=== PATIENT | female | born 1980 | race Caucasian/White ===

== ENCOUNTER 2017-04-22 20:24 | Emergency (ER) | payer BC ==
[2017-04-22 20:32] VITALS: BMI 24.3
--- NOTE | 2017-04-22 21:20 | DR.GENAD ---
HPI - PCP Primary Care Physician: Scott HUNT - HPI Comment HPI Comment: HISTORY BELOW. - Complaint/Symptoms Chief Complaint Doctors Comments: CHEST PAIN, SEVERE HEADACHE WITH NUMBNESS, N/ V AND PHOTOPHOBIA. HEADACHE NOT LIKE MIGRAINE. SEVERE. WORSE HEADACHE EVER. NOFEVER OR TRAUMA. Chief Complaint:: PT STATES" I'VE HAD SOME PROBLEMS WITH MY BP TODAY AND I FEEL LIKE SOMETHING IS HEAVY ON MY CHEST" - Nurses notes reviewed Nurses Notes Review: Yes - Source History Provided: Patient - Mode of Arrival Mode of Arrival: Ambulatory - Timing Onset of Chief Complaint: 04/22/17 Came on: Suddenly - Duration Duration: Constant Duration: Hours - Severity Severity: Moderate PMH - PMH Past Medical History: Yes Past Medical History: Anxiety, Headaches Past Surgical History: Yes Surgical History: CABG/Valve Surgery, Cholecystectomy, Hysterectomy, Other - Family History History of Family Medical Conditions: Yes Family Medical History: Diabetes Mellitus, [place], Hypertension - Social History Type of Tobacco Use: None Does any household member use tobacco: No Alcohol Use: None Do you use any recreational Drugs:: No Lives With: Family - infectious screening In the last 2 months have you had wt loss of >10#?: NO Have you had fever, night sweats or hemotysis?: No Have you traveled outside the country in the last 6 months?: No Isolation: Standard ROS - Review of Systems Constitutional: Weakness, Fatigue. negative: Chills, Fever Eyes: Blurred Vision, Photophobia ENTM: No Symptoms Reported Respiratoy: Short of Breath Cardiovascular: Chest Pain Gastrointestinal/Abdominal: Nausea, Vomiting Genitourinary: negative: Dysuria, Frequency, Hematuria Neurological: Headache, Weakness, Dizziness Musculoskeletal: Muscle Pain Integumentary: No Symptoms Reported Hematologic/Lymphatic: No Symptoms Reported Endocrine: No Symptoms Reported All Other Systems: Reviewed and Negative PE - Vital Signs Vitals: Temperature 97.1 F Pulse Rate [Left Brachial] 96 Pulse Rate 107 Respiratory Rate 19 Blood Pressure [Left Arm] 114/74 Blood Pressure 146/105 O2 Sat by Pulse Oximetry 96 - General Limitations: No Limitations General Appearance: Alert - Head Head Exam: Normal Inspection - Eyes Eye exam: Normal Appearance - ENT ENT Exam: Normal External Ear Exam External Ear Exam: Normal External Inspection TM/Canal Exam: Bilateral Normal Nose Exam: Normal Nose Exam Mouth Exam: Normal Inspection Throat Exam: Normal Inspection - Neck Neck Exam: Normal Inspection - Chest Chest Inspection: Symmetric Chest Wall Rise - Respiratory Respiratory Exam: Normal Lung Sounds Bilat Respiratory Exam: Bilateral Clear to Auscultation - Cardiovascular Cardiovascular Exam: Regular Rate, Normal Rhythm, Normal Heart Sounds - Abdominal Exam Abdominal Exam: Normal Bowel Sounds, Soft. negative: Tenderness - Extremities Extremities Exam: Normal Inspection - Back Back Exam: Normal Inspection - Neurologic Neurological Exam: Alert, Oriented X3, CN II-XII Intact, Normal Gait, Reflexes Normal. negative: Motor Sensory Deficit - Psychiatric Psychiatric Exam: Anxious - Skin Skin Exam: Normal Color MDM - Differential Diagnosis Differential Diagnosis: MIGRAINE, CHEST PAIN, SEVERE HEADACHE, PARESTHESIA Course - Treatment Treatment: SEE ORDERS. MED FOR PAIN, IMPROVED. - Reevaluation 1st: Improved - Education/Counseling Education/Counseling: Patient, Family, Education Educated On: Treatment, Diagnosis, Needs for Follow Up ROR - Labs Reviewed Laboratory Results Reviewed?: Yes Result Diagrams: 04/22/17 21:19 04/22/17 21:19 Laboratory: WBC 7.1 X10^3/uL (3.6-10.0) 04/22/17 21:19 RBC 4.43 X10^6/uL (3.5-5.4) 04/22/17 21:19 Hgb 14.0 g/dL (12.0-16.0) 04/22/17 21:19 Hct 40.6 % (36.0-47.0) 04/22/17 21:19 MCV 91.7 fL (80.0-100.0) 04/22/17 21:19 MCH 31.5 pg (27.0-34.0) 04/22/17 21:19 MCHC 34.4 g/dL (33.0-35.0) 04/22/17 21:19 RDW 12.8 % (11.6-16.5) 04/22/17 21:19 Plt Count 247 X10^3/uL (150.0-450.0) 04/22/17 21:19 MPV 10.0 fL (7.4-11.0) 04/22/17 21:19 Neut % 56.8 % (42.0-75.0) 04/22/17 21:19 Lymph % 30.9 % (21.0-51.0) 04/22/17 21:19 [place] % 9.7 % (0.0-13.0) 04/22/17 21:19 Eos % 1.2 % (0.9-2.9) 04/22/17 21:19 Baso % 1.4 % (0.2-1.0) H 04/22/17 21:19 Neut # 4.0 x10^3/uL (2.2-4.8) 04/22/17 21:19 Lymph # 2.2 X10^3/uL (1.3-2.9) 04/22/17 21:19 [place] # 0.7 x10^3/uL (0.3-0.8) 04/22/17 21:19 Eos # 0.1 x10^3/uL (0.0-0.2) 04/22/17 21:19 Baso # 0.1 X10^3/uL (0.0-0.1) 04/22/17 21:19 Absolute Nucleated RBC 0.0 /100WBC 04/22/17 21:19 INR Target Range - 04/22/17 21:19 INR 1.01 (0.8-1.3) 04/22/17 21:19 PTT 28.1 SECONDS (22.9-36.5) 04/22/17 21:19 PTT Comment - 04/22/17 21:19 Sodium 139 mmol/L (136-145) 04/22/17 21:19 Corrected Sodium TNP 04/22/17 21:19 Potassium 3.5 mmol/L (3.5-5.1) 04/22/17 21:19 Chloride 104 mmol/L (98-107) 04/22/17 21:19 Carbon Dioxide 27.0 mmol/L (21-32) 04/22/17 21:19 BUN 14 mg/dL (7-18) 04/22/17 21:19 Creatinine 1.03 mg/dL (0.55-1.02) H 04/22/17 21:19 Est GFR (MDRD) Af Amer > 60 (>60) 04/22/17 21:19 Est GFR (MDRD) Non-Af > 60 (>60) 04/22/17 21:19 Glucose 97 mg/dL (65-99) 04/22/17 21:19 Calcium 9.2 mg/dL (8.5-10.1) 04/22/17 21:19 Corrected Calcium TNP 04/22/17 21:19 Magnesium 1.9 mg/dL (1.7-2.9) 04/22/17 21:19 Total Bilirubin 0.80 mg/dL (0.2-1.0) 04/22/17 21:19 AST 20 Units/L (15-37) 04/22/17 21:19 ALT 20 Units/L (12-78) 04/22/17 21:19 Alkaline Phosphatase 79 Units/L (46-116) 04/22/17 21:19 Creatine Kinase 91 Units/L (26-192) 04/22/17 21:19 CK-MB (CK-2) < 1.0 ng/mL (0-4.0) 04/22/17 21:19 CK/CKMB % Calc 1.1 % (<4) 04/22/17 21:19 Troponin I < 0.02 ng/mL (0-1.5) 04/22/17 21:19 Total Protein 7.8 g/dL (6.4-8.2) 04/22/17 21:19 Albumin 4.1 g/dL (3.4-5.0) 04/22/17 21:19 Globulin 3.7 g/dL (2.5-4.5) 04/22/17 21:19 Albumin/Globulin Ratio 1.1 Ratio (1.1-2.1) 04/22/17 21:19 - XRAY XRAY Interpreted by: Radiologist XRAY Findings: report discusswith patient. - Diagnosis Discharge Problem: Migraine Qualifiers: Migraine type: with aura Status migrainosus presence: without status migrainosus Intractability: intractable Qualified Code(s): G43.119 - Migraine with aura, intractable, without status migrainosus Chest pain Qualifiers: Chest pain type: intercostal pain Qualified Code(s): R07.82 - Intercostal pain - Discharge Plan Disposition: 01 HOME, SELF-CARE Condition: Stable - Follow ups/Referrals Follow ups/Referrals: NFD,None [Primary Care Provider] - 2 days - Instructions Instructions: Migraine Headache, [id number], Chest Pain Observation Additional Instructions: RETURN TO ED IF WORSE. CONTINUE WITH HOME MEDS
[2017-04-22 21:29] LABS: BASOPHILS # (AUTO) 0.1 X10^3/uL (0.0-0.1); BASOPHILS % (AUTO) 1.4 % (0.2-1.0); EOSINOPHILS # (AUTO) 0.1 x10^3/uL (0.0-0.2); EOSINOPHILS % (AUTO) 1.2 % (0.9-2.9); HEMATOCRIT 40.6 % (36.0-47.0); LYMPHOCYTES # (AUTO) 2.2 X10^3/uL (1.3-2.9); LYMPHOCYTES % (AUTO) 30.9 % (21.0-51.0); MEAN CORPUSCULAR HEMOGLOBIN 31.5 pg (27.0-34.0); MEAN CORPUSCULAR HGB CONC 34.4 g/dL (33.0-35.0); MEAN CORPUSCULAR VOLUME 91.7 fL (80.0-100.0); MONOCYTES # (AUTO) 0.7 x10^3/uL (0.3-0.8); MONOCYTES % (AUTO) 9.7 % (0.0-13.0); NEUTROPHILS % (AUTO) 56.8 % (42.0-75.0); PLATELET COUNT 247 X10^3/uL (150.0-450.0); RED BLOOD COUNT 4.43 X10^6/uL (3.5-5.4); RED CELL DISTRIBUTION WIDTH 12.8 % (11.6-16.5); WHITE BLOOD COUNT 7.1 X10^3/uL (3.6-10.0)
[2017-04-22] MEDS ORDERED: DILAUDID INJ IM ONE (21:51)
[2017-04-22] MEDS ORDERED: ATIVAN INJ 2 MG VIAL IM ONE (21:52)
[2017-04-22] MEDS ORDERED: ZOFRAN INJ 4 MG VIAL IM ONE (21:55)
[2017-04-22] MEDS ORDERED: ATIVAN INJ 2 MG VIAL ONE (21:59)
[2017-04-22] MEDS ORDERED: ZOFRAN INJ 4 MG VIAL ONE (21:59)
[2017-04-22] MEDS ORDERED: DILAUDID INJ ONE (21:59)
[2017-04-22 22:01] LABS: BLOOD UREA NITROGEN 14 mg/dL (7-18); CALCIUM 9.2 mg/dL (8.5-10.1); CHLORIDE 104 mmol/L (98-107); CREATININE 1.03 mg/dL (0.55-1.02); SODIUM 139 mmol/L (136-145); TROPONIN I < 0.02 ng/mL (0-1.5); eGFR BLACK RACES > 60 (>60); eGFR NON BLACK RACES > 60 (>60)
--- NOTE | 2017-04-22 22:04 | CT ---
HISTORY: Hypertension Study: CT brain without contrast Comparison: None Technique: Multiple axial images of the brain were obtained from the skull base to the vertex without administra tion of IV contrast. Dose reduction techniques including Automated Exposure Control (AEC) and adjust ment of mA and kV were utilized. Findings: The brain parenchyma is within normal limits for patient's age. No evidence of acute hemorrhage, mid line shift, mass effect or abnormal extra-axial fluid collection. The ventricular system is symmetri c and nondilated. The soft tissues and osseous structures are unremarkable. The visualized paranasal sinuses are clear. IMPRESSION: 1.No acute intracranial abnormality. Reported By:
[2017-04-22 22:06] LABS: ALANINE AMINOTRANSFERASE 20 Units/L (12-78); ALBUMIN 4.1 g/dL (3.4-5.0); ALKALINE PHOSPHATASE 79 Units/L (46-116); ASPARTATE AMINO TRANSFERASE 20 Units/L (15-37); CKMB % 1.1 % (<4); CREATINE KINASE 91 Units/L (26-192); CREATINE KINASE MB < 1.0 ng/mL (0-4.0); MAGNESIUM 1.9 mg/dL (1.7-2.9); TOTAL PROTEIN 7.8 g/dL (6.4-8.2)
--- NOTE | 2017-04-22 22:06 | RAD ---
Chest AP portable Indication: Hypertension. Findings: There is no pneumothorax, effusion or consolidation. Cardiac monitoring leads obscure minim al detail. Heart size is normal. Impression: No acute chest process or change from the prior. Reported By:
[2017-04-22] MEDS ORDERED: TORADOL TAB PO ONE ×2 (22:41→22:46)
[2017-04-22 22:51] VITALS: BP 114/74
== END 2017-04-22 22:52 | disposition home or self-care (01) ==
LOC: ER 20:38
DX: R07.82 Intercostal pain (principal); G43.119 Migraine with aura, intractable, without status migrainosus
CPT/HCPCS: 36415; 70450; 71010; 80053; 82550; 82553; 83735; 84484; 85025; 85610; 85730; 93005; 93010; 96372; 99283; J1170; J2060; J2405

== ENCOUNTER 2017-08-05 17:14 | Emergency (ER) | payer BC ==
[2017-08-05 17:20] VITALS: BP 141/83; BMI 24.3
[2017-08-05] MEDS ORDERED: PHENERGAN INJ 25 MG IM ONE (17:52)
[2017-08-05] MEDS ORDERED: DEMEROL INJ IM ONE (17:52)
--- NOTE | 2017-08-05 17:53 | DR.HEADACH ---
HPI - Time Seen Time seen: 17:35 - Primary Care Physician Primary Care Physician: JAMES - HPI Comment HPI Comment: PHOTOPHOBIA PRESENT. - Complaint/Symptoms Chief Complaint Doctors Comments: HEADACHE WITH NAUSEA. WORSE TODAY. HOME MED DID NOT HELP. Chief Complaint:: MIGRAINE FOR SATURDAY MORNING. TOOK FROVA THAT IS PRESCRIBED. WENT AWAY AND THIS MORNING IT CAME BACK ON AND HAVING NAUSEA. TOOK ZOFRAN FOR NAUSEA Pertinent History: Headache, Nausea/Vomitting - Reviewed Nurses Notes Reviewed: Yes - Source History Provided: Patient - Mode of Arrival Mode of Arrival: Ambulatory - Timing Onset of Chief Complaint: 08/02/17 - Duration Since Onset: Constant Duration: Days - Quality Quality: Throbbing - Severity Headache Severity: Moderate - Context Headache Onset Circumstances: Spontaneous History of: None Prior Work Up: CT - Modifying Factors Improves With: Analgesics Worsens: Nothing - Associated Signs and Symptoms Associated Symptoms: Nausea, Vomitting, Photophobia PMH - PMH Past Medical History: Yes Past Medical History: Anxiety, Headaches Past Surgical History: Yes Surgical History: , Cholecystectomy, Hysterectomy, Other Past Surgical History Comment: TWO NECK SURGERY - Family History History of Family Medical Conditions: Yes Family Medical History: Diabetes Mellitus, [place], Hypertension - Social History Does any household member use tobacco: No Alcohol Use: None Do you use any recreational Drugs:: No Lives With: Family Lives Where: Home - infectious screening In the last 2 months have you had wt loss of >10#?: NO Have you had fever, night sweats or hemotysis?: No Have you traveled outside the country in the last 6 months?: No Isolation: Standard ROS - Review of Systems Constitutional: No Symptoms Reported Eyes: Photophobia ENTM: No Symptoms Reported Respiratoy: No Symptoms Reported Cardiovascular: No Symptoms Reported Gastrointestinal/Abdominal: No Symptoms Reported Genitourinary: No Symptoms Reported Neurological: Headache. negative: Weakness, Dizziness Musculoskeletal: No Symptoms Reported Integumentary: No Symptoms Reported Hematologic/Lymphatic: No Symptoms Reported Endocrine: No Symptoms Reported All Other Systems: Reviewed and Negative PE - Vital Signs Vitals: Temperature 97.6 F Pulse Rate 103 Respiratory Rate 22 Blood Pressure [Left Arm] 114/74 Blood Pressure 141/83 O2 Sat by Pulse Oximetry 100 - General Limitations: No Limitations General Appearance: Alert - Head Head Exam: Normal Inspection - Eyes Eye exam: Normal Appearance Eyelids: Normal Inspection: Bilateral Pupils: Regular, Round: Bilateral, Reactive: Bilateral Sclera/Conjunctival: Normal Inspection: Bilateral - ENT ENT Exam: Normal External Ear Exam External Ear Exam: Normal External Inspection TM/Canal Exam: Bilateral Normal Nose Exam: negative: Normal Nose Exam, Crepitus Mouth Exam: Normal Inspection Teeth Exam: Normal Inspection Throat Exam: Normal Inspection - Neck Neck Exam: Trachea Midline - Chest Chest Inspection: Symmetric Chest Wall Rise - Respiratory Respiratory Exam: Normal Lung Sounds Bilat Respiratory Exam: Bilateral Clear to Auscultation - Cardiovascular Cardiovascular Exam: Regular Rate, Normal Rhythm, Normal Heart Sounds - Abdominal Exam Abdominal Exam: Normal Bowel Sounds, Soft. negative: Tenderness - Extremities Extremities Exam: Normal Inspection - Back Back Exam: Normal Inspection - Neurologic Neurological Exam: Alert, Oriented X3 - Psychiatric Psychiatric Exam: Anxious - Skin Skin Exam: Normal Color MDM - Differential Diagnosis Differential Diagnosis: Considerations may include:: Migraine, Sinusitis Course - Treatment Treatment: SEE ORDERS. IM PAIN MED IN ED. PAIN IMPROVING. - Education/Counseling Education/Counseling: Patient, Education Educated On: Treatment, Diagnosis, Needs for Follow Up - Diagnosis Discharge Problem: Migraine Qualifiers: Migraine type: with aura Status migrainosus presence: without status migrainosus Intractability: intractable Qualified Code(s): G43.119 - Migraine with aura, intractable, without status migrainosus - Discharge Plan Disposition: 01 HOME, SELF-CARE Condition: Stable - Follow ups/Referrals Follow ups/Referrals: ANSELMO HUNT [Primary Care Provider] - 3 days - Instructions Instructions: Migraine Headache, [id number] Additional Instructions: RETURN TO ED IF WORSE.
[2017-08-05] MEDS ORDERED: DEMEROL INJ ONE (17:56)
[2017-08-05] MEDS ORDERED: PHENERGAN INJ 25 MG ONE (17:56)
== END 2017-08-05 18:40 | disposition home or self-care (01) ==
LOC: ER 17:28
DX: G43.119 Migraine with aura, intractable, without status migrainosus (principal)
CPT/HCPCS: 96372; 99282; J2175; J2550

== ENCOUNTER 2017-10-25 11:30 | Emergency (ER) | payer BC ==
[2017-10-25 11:48] VITALS: BMI 23.6
--- NOTE | 2017-10-25 12:12 | DR.HEADACH ---
HPI - Time Seen Time seen: 12:08 - Primary Care Physician Primary Care Physician: GILBERT - Complaint/Symptoms Chief Complaint Doctors Comments: headache onset last night. She took 1 Friova when she felt this coming on. She went to sleep and awoke this a.m. still with headache. She had been having the headaches frequently and was on Topamax for maintainance. Frequency is now once in about 3 months. She no longer takes Topamax. She has a hx. of cervical laiminectomy a few years back. Chief Complaint:: BACK OF HEAD AND NECK PAIN SINCE LAST NIGHT - Reviewed Nurses Notes Reviewed: Yes - Source History Provided: Patient - Mode of Arrival Mode of Arrival: Ambulatory - Timing Onset of Chief Complaint: 10/24/17 - Location Headache Location: Generalized - Severity Headache Severity: Like Previous Headaches PMH - PMH Past Medical History: Yes Past Medical History: Anxiety, Headaches Past Surgical History: Yes Surgical History: , Cholecystectomy, Hysterectomy - Family History History of Family Medical Conditions: Yes Family Medical History: Diabetes Mellitus, [place], Hypertension - Social History Does any household member use tobacco: No Alcohol Use: None Do you use any recreational Drugs:: No Lives With: Family Lives Where: Home - infectious screening In the last 2 months have you had wt loss of >10#?: NO Have you had fever, night sweats or hemotysis?: No Have you traveled outside the country in the last 6 months?: No Isolation: Standard ROS - Review of Systems Constitutional: No Symptoms Reported Eyes: No Symptoms Reported ENTM: No Symptoms Reported Respiratoy: No Symptoms Reported Cardiovascular: No Symptoms Reported Gastrointestinal/Abdominal: No Symptoms Reported Genitourinary: No Symptoms Reported Neurological: Headache Musculoskeletal: No Symptoms Reported Integumentary: No Symptoms Reported Hematologic/Lymphatic: No Symptoms Reported Endocrine: No Symptoms Reported Psychiatric: No Symptoms Reported All Other Systems: Reviewed and Negative PE - Vital Signs Vitals: Temperature 97.5 F Pulse Rate 84 Respiratory Rate 18 Blood Pressure [Left Arm] 114/74 Blood Pressure 111/62 O2 Sat by Pulse Oximetry 100 - General Limitations: No Limitations General Appearance: Alert - Head Head Exam: Normal Inspection - Eyes Eye exam: Normal Appearance - ENT ENT Exam: Normal Exam - Neck Neck Exam: Normal Inspection, Full ROM, Trachea Midline, Other (small, healed, horizintal incisional line noted.) - Chest Chest Inspection: Normal Inspection - Respiratory Respiratory Exam: Normal Lung Sounds Bilat - Cardiovascular Cardiovascular Exam: Regular Rate, Normal Heart Sounds, +S1, +S2 - Abdominal Exam Abdominal Exam: Normal Inspection, Normal Bowel Sounds, Soft - Extremities Extremities Exam: Normal Inspection - Back Back Exam: Normal Inspection - Neurologic Neurological Exam: Alert, Oriented X3 - Psychiatric Psychiatric Exam: Normal Affect, Normal Mood - Skin Skin Exam: Warm, Dry, Intact, Normal Color Course - Reevaluation 1st: Improved 2nd: Improved - Education/Counseling Education/Counseling: Patient, Family, Education, Counseling Educated On: Treatment, Diagnosis, Prognosis, Needs for Follow Up - Diagnosis Discharge Problem: Tension headache - Discharge Plan Disposition: 01 HOME, SELF-CARE Condition: Stable - Follow ups/Referrals Follow ups/Referrals: ANSELMO HUNT [Primary Care Provider] - 3 days - Instructions
[2017-10-25] MEDS ORDERED: TORADOL 60 MG VIAL IM ONE (12:15)
[2017-10-25] MEDS ORDERED: FIORICET TAB PO ONE ×2 (12:24→15:16)
[2017-10-25] MEDS ORDERED: TORADOL 60 MG VIAL ONE (12:24)
[2017-10-25] MEDS ORDERED: FIORICET #3 W/CODEINE CAP PO ONE (12:31)
[2017-10-25] MEDS ORDERED: NUBAIN INJ 200 MG VIAL MULTIDOSE IM ONE (13:41)
[2017-10-25 14:35] VITALS: BP 104/76
== END 2017-10-25 14:35 | disposition home or self-care (01) ==
LOC: ER 11:55
DX: G44.209 Tension-type headache, unspecified, not intractable (principal)
CPT/HCPCS: 96372; 99282; J1885